=== PATIENT | female | born 2000 | race Caucasian/White ===

== ENCOUNTER 2019-03-13 16:12 | Outpatient (CLI) | payer OTHER ==
--- NOTE | 2019-03-13 16:33 | RAD ---
Exam: 4 views of lumbar spine HISTORY: Spinal stenosis. Comparison none FINDINGS: 4 weightbearing views of lumbar spine demonstrate 5 lumbar type vertebral bodies. Vertebral body height is maintained. No fracture. Disc space heights are preserved. No spondylolisthesis in the neutral position. No abnormal motion upon flexion or extension. IMPRESSION: Unremarkable lumbar spine radiograph series
== END 2019-03-13 16:13 | disposition home or self-care (01) ==
LOC: BICRAD 16:12
PROVIDERS: ATTEND Specialist
DX: M48.061 Spinal stenosis, lumbar region without neurogenic claudication (principal)
CPT/HCPCS: 72110

== ENCOUNTER 2019-04-03 09:57 | Outpatient (CLI) | payer OTHER ==
--- NOTE | 2019-04-03 10:54 | MRI ---
EXAM: MRI lumbar spine without contrast HISTORY: Low back pain and bilateral lower extremity numbness for 12 years. COMPARISON: None TECHNIQUE: Multiple planar multisequence MR images were obtained of the lumbar spine without contrast . FINDINGS: The vertebral bodies and intervertebral discs demonstrate normal height and alignment without fractur e or subluxation. The prevertebral and paraspinal soft tissues are unremarkable. No marrow signal abnormality is present. The conus medullaris terminates normally at T12/L1. T12/L1: No significant posterior bulge or protrusion. No posterior facet arthrosis. No central sourav l stenosis. No neural foraminal stenosis L1/2: No significant posterior bulge or protrusion. No posterior facet arthrosis. No central canal stenosis. No neural foraminal stenosis L2/3: No significant posterior bulge or protrusion. No posterior facet arthrosis. No central canal stenosis. No neural foraminal stenosis L3/4: No significant posterior bulge or protrusion. No posterior facet arthrosis. No central canal stenosis. No neural foraminal stenosis L4/5: No significant posterior bulge or protrusion. No posterior facet arthrosis. No central canal stenosis. No neural foraminal stenosis L5/S1: No significant posterior bulge or protrusion. No posterior facet arthrosis. No central canal stenosis. No neural foraminal stenosis IMPRESSION: No significant lumbar spine abnormality.
== END 2019-04-03 09:58 | disposition home or self-care (01) ==
LOC: SCSMRI 09:57
PROVIDERS: ATTEND Specialist
DX: M48.061 Spinal stenosis, lumbar region without neurogenic claudication (principal)
CPT/HCPCS: 72148